=== PATIENT | male | born 1940 | race Caucasian/White ===

== ENCOUNTER → 2023-08-16 12:09 | Outpatient (BNVA) | payer MEDICARE, OTHER, SELFPAY | PROVIDERS: PCP Neurological Surgery; Visit Provider Nurse Practitioner Family | DX: N30.01 Acute cystitis with hematuria (principal); J44.9 Chronic obstructive pulmonary disease, unspecified; N40.0 Benign prostatic hyperplasia without lower urinary tract symptoms; R09.02 Hypoxemia; R39.9 Unspecified symptoms and signs involving the genitourinary system | CPT/HCPCS: 81000; 87077; 87086; 87184 ==

== ENCOUNTER 2024-01-19 08:38 | Outpatient (CLI) | payer OTHER, SELFPAY ==
[2024-01-19 08:55] VITALS: PULSE 97; RESP 20; O2SAT 97
[2024-01-19] MEDS: albuterol 2.5 mg/3 mL Neb INHALATION (08:55)
[2024-01-19 08:59] VITALS: PULSE 94
== END 2024-01-19 08:39 | disposition home or self-care (01) ==
LOC: RT 08:39
PROVIDERS: PCP Neurological Surgery; Visit Provider Nurse Practitioner Family
DX: J44.9 Chronic obstructive pulmonary disease, unspecified (principal)
CPT/HCPCS: 94060; 94729

== ENCOUNTER 2024-11-26 20:00 | Outpatient (CLI) | payer OTHER, SELFPAY | END 2024-11-26 20:01 | disposition home or self-care (01) | LOC: SLEEP 23:49 | PROVIDERS: PCP Neurological Surgery; Visit Provider Neurological Surgery | DX: R35.1 Nocturia (principal) | CPT/HCPCS: 95810 ==